=== PATIENT | female | born 1980 | race Caucasian/White ===

== ENCOUNTER 2016-10-07 01:26 | Emergency (ER) | payer OTHER, MEDICAID ==
[2016-10-07 01:33] VITALS: BP 125/70; PULSE 80; RESP 16; TEMP 98.2; O2SAT 94
--- NOTE | 2016-10-07 01:41 | EDPHY ---
H & P Stated Complaint: right finger injury HPI/ROS: HPI CHIEF COMPLAINT: Right 4th finger pain HISTORY OF PRESENT ILLNESS: Patient very pleasant 35-year-old female she presents emergency room by private vehicle with pain and trauma to the right 4th finger. She states that she slipped and fell earlier around 8:00 p.m. jamming her right 4th finger into the ground. She now has pain to the distal aspect. No laceration. She does full range of motion she is neurovascularly intact. No obvious significant swelling but tender to palpation of the distal aspect. Past Medical History: No medical history Past Surgical History: No surgical history Social History: Denies daily use drugs alcohol tobacco products Family History: Noncontributory ROS REVIEW OF SYSTEMS: A comprehensive 10 point review of systems is otherwise negative aside from elements mentioned in the history of present illness. Exam Constitutional triage nursing summary reviewed, vital signs reviewed, awake/ alert. Eyes normal conjunctivae and sclera, EOMI, PERRLA. HENT normal inspection, atraumatic, moist mucus membranes, no epistaxis, neck supple/ no meningismus, no raccoon eyes. Respiratory clear to auscultation bilaterally, normal breath sounds, no respiratory distress, no wheezing. Cardiovascular rate normal, regular rhythm, no murmur, no edema, distal pulses normal. Gastrointestinal soft, non-tender, no rebound, no guarding, normal bowel sounds, no distension, no pulsatile mass. Genitourinary no CVA tenderness. Musculoskeletal right hand: 4th digit: Tender palpation of the distal 4th digit dorsal aspect however neurovascularly intact full range of motion good inbound sales representative strength no laceration no midline vertebral tenderness, full range of motion, no calf swelling, no tenderness of extremities, no meningismus, good pulses, neurovascularly intact. Skin pink, warm, & dry, no rash, skin atraumatic. Neurologic awake, alert and oriented x 3, AAOx3, moves all 4 extremities equally, motor intact, sensory intact, CN II-XII intact, normal cerebellar, normal vision, normal speech. Psychiatric normal mood/affect. Heme/Lymph/Immune no lymphadenopathy. Differential Diagnosis: Includes but is not limited to in a particular order: Finger contusion, soft tissue injury, bony contusion, fracture, dislocation Medical Decision Making: Plan for this patient x-ray right 4th digit, ice pack. Patient declined pain medicine. Re-evaluation: ED x-ray right 4th digit: I do not appreciate a fracture significant dislocation. Patient be splinted for comfort. Follow up with Hand surgery outpatient. Return emergency room if there is worsening symptoms questions or concerns she understands. Source: Patient - Personal History LMP (Females 10-55): 1-7 Days Ago Current Tetanus Diphtheria and Acellular Pertussis (TDAP): Yes Tetanus Vaccine Date: <10 years - Medical/Surgical History Hx Asthma: Yes Hx Chronic Respiratory Disease: No Hx Diabetes: No Hx Cardiac Disease: No Hx Renal Disease: No Hx Cirrhosis: No Hx Alcoholism: No Hx HIV/AIDS: No Hx Splenectomy or Spleen Trauma: No Other PMH: asthma, bipolar, ADHD, schizoaffective, PTSD, anxiety, depression, panic attacks - Social History Smoking Status: Former smoker Constitutional: Initial Vital Signs Temperature (C) 36.8 C 10/07/16 01:30 Heart Rate 80 10/07/16 01:30 Respiratory Rate 16 10/07/16 01:30 Blood Pressure 125/70 H 10/07/16 01:30 O2 Sat (%) 94 10/07/16 01:30 O2 Delivery Mode Room Air Allergies/Adverse Reactions: No Known Allergies Allergy (Unverified 10/07/16 01:35) Home Medications: Medication Instructions Recorded Clonidine 10/07/16 Neurontin 10/07/16 Qvar 10/07/16 Valium 10/07/16 Departure - Departure Disposition: Home, Routine, Self-Care Clinical Impression: Finger contusion Qualifiers: Encounter type: initial encounter Finger: unspecified finger Qualified Code(s) : S60.00XA - Contusion of unspecified finger without damage to nail, initial encounter Condition: Good Instructions: Finger Sprain (ED) Referrals: Rosa Zapata DO [Primary Care Provider] - As per Instructions Elmer Nelson MD [Medical Doctor] - As per Instructions
== END 2016-10-07 02:23 | disposition home or self-care (01) ==
DX: S60.041A Contusion of right ring finger without damage to nail, initial encounter (principal); J45.909 Unspecified asthma, uncomplicated; Z87.891 Personal history of nicotine dependence; W01.0XXA Fall on same level from slipping, tripping and stumbling without subsequent striking against object, initial encounter